=== PATIENT | female | born 2000 | race Caucasian/White ===

== ENCOUNTER 2023-08-01 20:39 | Observation (INO) | payer OTHER ==
[~2023-08-01] VITALS: Ht 157.5 cm; Wt 64.9 kg
[2023-08-01 21:05] VITALS: BP 131/79; PULSE 122; RESP 18; TEMP 101.4; O2SAT 100
[2023-08-01] MEDS: ACETAMINOPHEN EXTRA STRENGTH 500 MG TAB PO ONE (22:03)
[2023-08-01] MEDS: MORPHINE SULFATE 4 MG/ML SYR IVP ONE (22:20)
[2023-08-01] MEDS: NACL 0.9% 1,000 ML IV ONE (22:20)
[2023-08-01] MEDS: KETOROLAC 30 MG/ML VIAL IVP ONE (22:51)
[2023-08-01 22:58] LABS: BASOPHILS # (AUTO) 0.1 K/uL (0.00-0.22); BASOPHILS % (AUTO) 0.4 % (0.0-2.0); EOSINOPHILS % (AUTO) 0.2 % (0.0-4.0); HEMATOCRIT 38.5 % (36-48); HEMOGLOBIN 13.2 g/dL (12.0-16.0); LYMPHOCYTES # (AUTO) 2.2 K/uL (2.5-16.5); LYMPHOCYTES % (AUTO) 12.4 % (20.5-51.1); MEAN CORPUSCULAR HEMOGLOBIN 28 pg (27-31); MEAN CORPUSCULAR HGB CONC 34 g/dL (33-37); MONOCYTES # (AUTO) 1.2 K/uL (0.8-1.0); PLATELET COUNT (AUTO) 317 K/uL (140-450); RED CELL DISTRIBUTION WIDTH 14.2 % (11.6-13.7); WHITE BLOOD COUNT (AUTO) 17.5 K/uL (4.8-10.8)
[2023-08-01 23:15] LABS: ALBUMIN 3.2 g/dL (3.4-5.0); ANION GAP 12.4 (8-16); CALCIUM 8.8 mg/dL (8.5-10.1); CARBON DIOXIDE 28.3 mmol/L (21-32); CREATININE 0.6 mg/dL (0.6-1.3); POTASSIUM 3.7 mmol/L (3.5-5.1); TOTAL BILIRUBIN 0.2 mg/dL (0.0-1.0); TOTAL PROTEIN, SERUM 8.2 g/dL (6.4-8.2)
[2023-08-01 23:18] LABS: LACTIC ACID 1.1 mmol/L (0.4-2.0)
[2023-08-01 23:39] LABS: FLU A ANTIGEN negative (NEGATIVE); FLU B ANTIGEN NEGATIVE (NEGATIVE)
[2023-08-02] MEDS: LIDOCAINE MPF 1% 10 MG/ML VIAL INJ ONE (04:45)
[2023-08-02] MEDS ORDERED: ZOLP5TAB1 PO (05:35)
[2023-08-02] MEDS ORDERED: APIX2.5 PO (05:35)
[2023-08-02] MEDS ORDERED: ATOM25CA PO (05:43)
[2023-08-02] MEDS ORDERED: SERT25TA PO (05:43)
[2023-08-02] MEDS: CLINDAMYCIN 600 MG/4 ML VIAL IV ONE (06:28)
[2023-08-02] MEDS ORDERED: VANCOMYCIN PER PHARMACY MC PRN (06:45)
[2023-08-02] MEDS ORDERED: ONDANSETRON 4 MG/2 ML VIAL IVP PRN (06:45)
[2023-08-02] MEDS: NACL 0.9% 1,000 ML IV SCH (07:33)
[2023-08-02 11:00] VITALS: BP 109/65; PULSE 52; RESP 16; TEMP 99; O2SAT 100
[2023-08-02] MEDS: VANCOMYCIN 1.25GM PREMIX 250 ML IV SCH (12:00)
[2023-08-02] MEDS: MORPHINE SULFATE 2 MG/ML SYR IVP PRN (14:26)
[2023-08-02] MEDS: PIPERACILLIN/TAZOBACTAM 3.375 GM in DEXTROSE 5% 50 ML IV SCH (15:09)
[2023-08-02] MEDS: diphenhydrAMINE 50 MG/ML VIAL IVP PRN (15:09)
[2023-08-02 16:00] VITALS: BP 111/61; PULSE 65; RESP 18; TEMP 99.8; O2SAT 100
[2023-08-02 20:00] VITALS: BP 105/56; PULSE 106; RESP 18; TEMP 100.2; O2SAT 97
[2023-08-02] MEDS: ACETAMINOPHEN 325 MG TAB PO PRN (20:35)
[2023-08-03 04:00] VITALS: BP 99/56; PULSE 92; RESP 18; TEMP 97.8; O2SAT 100
[2023-08-03] MEDS: HYDROcodone/APAP 5/325 MG 1 TAB TAB PO PRN (05:08)
[2023-08-03 05:21] LABS: BASOPHILS % (AUTO) 0.3 % (0.0-2.0); EOSINOPHILS # (AUTO) 0.1 K/uL (0-0.4); EOSINOPHILS % (AUTO) 0.6 % (0.0-4.0); HEMATOCRIT 36.7 % (36-48); HEMOGLOBIN 12.3 g/dL (12.0-16.0); LYMPHOCYTES % (AUTO) 12.8 % (20.5-51.1); MEAN CORPUSCULAR HEMOGLOBIN 28 pg (27-31); MEAN CORPUSCULAR HGB CONC 34 g/dL (33-37); MEAN CORPUSCULAR VOLUME 83.6 fL (80-94); MONOCYTES % (AUTO) 6.6 % (1.7-9.3); NEUTROPHILS # (AUTO) 12.5 K/uL (1.8-7.7); NEUTROPHILS % (AUTO) 79.7 % (42.2-75.2); PLATELET COUNT (AUTO) 330 K/uL (140-450); RED CELL DISTRIBUTION WIDTH 14.4 % (11.6-13.7); WHITE BLOOD COUNT (AUTO) 15.6 K/uL (4.8-10.8)
[2023-08-03 05:51] LABS: ANION GAP 11.1 (8-16); CALCIUM 8.2 mg/dL (8.5-10.1); CARBON DIOXIDE 28.9 mmol/L (21-32); CREATININE 0.8 mg/dL (0.6-1.3)
[2023-08-03] MEDS ORDERED: CLIN-223 PO (08:54)
[2023-08-03] MEDS ORDERED: IBUP-2213 PO (08:54)
[2023-08-03] MEDS ORDERED: LEVO-481 PO (08:54)
[2023-08-03 09:43] VITALS: BP 125/65; PULSE 82; RESP 18; TEMP 98.2
== END 2023-08-03 11:30 | disposition home or self-care (01) ==
LOC: MED 20:39 → MTU 08-02 10:43
PROVIDERS: ADMIT Family Medicine; ATTEND Family Medicine
DX: L05.91 Pilonidal cyst without abscess (principal); Z20.822 Contact with and (suspected) exposure to COVID-19; D72.829 Elevated white blood cell count, unspecified; M53.3 Sacrococcygeal disorders, not elsewhere classified
CPT/HCPCS: 10080; 36415; 74177; 80048; 80053; 83605; 85025; 87040; 87081; 87426; 87804; 96361; 96365; 96366; 96375; 96376; 99285; G0378; J1200; J1885; J2001; J2270; J2543; J3372; J3490; J7060; Q9967

== ENCOUNTER 2023-08-08 18:40 | Emergency (ER) | payer OTHER ==
[~2023-08-08] VITALS: Ht 157.5 cm; Wt 65.8 kg
[~2023-08-08 18:40] MED LIST: ATOM25CA PO; CLIN-223 PO; IBUP-2213 PO; LEVO-481 PO; SERT25TA PO
[2023-08-08 18:52] VITALS: BP 98/59; PULSE 100; RESP 18; TEMP 98.3; O2SAT 95
[2023-08-08] MEDS ORDERED: NAPR-1704 PO (19:50)
[2023-08-08] MEDS: KETOROLAC 30 MG/ML VIAL IM ONE (20:05)
== END 2023-08-08 20:05 | disposition home or self-care (01) ==
LOC: MED 18:40
DX: L05.91 Pilonidal cyst without abscess (principal); Z98.890 Other specified postprocedural states; Z79.899 Other long term (current) drug therapy
CPT/HCPCS: 10080; 81002; 81025; 96372; 99283; J1885

== ENCOUNTER 2023-08-14 14:49 | Emergency (ER) | payer OTHER ==
[~2023-08-14] VITALS: Ht 157.5 cm; Wt 65.8 kg
[~2023-08-14 14:49] MED LIST changes: +NAPR-1704 PO
[2023-08-14 14:59] VITALS: BP 94/59; PULSE 87; RESP 16; TEMP 97.1; O2SAT 96
[2023-08-14 15:48] VITALS: BP 109/67; PULSE 85; RESP 16; TEMP 97.1; O2SAT 96
== END 2023-08-14 15:48 | disposition home or self-care (01) ==
LOC: MED 14:49
DX: Z48.01 Encounter for change or removal of surgical wound dressing (principal); Z79.899 Other long term (current) drug therapy
CPT/HCPCS: 99281